=== PATIENT | male | born 1945 | race Caucasian/White ===

== ENCOUNTER 2018-09-08 19:40 | Emergency (ER) | payer MEDICARE ==
[2018-09-08] MEDS ORDERED: Morphine 4 MG/ML Syringe IVPUSH ONE ×2 (20:20→20:38)
[2018-09-08] MEDS ORDERED: Ondansetron 4 MG/2 ML SDV IVPUSH ONE (20:21)
[2018-09-08] MEDS ORDERED: Ondansetron 4 MG/2 ML SDV ONE (20:22)
--- NOTE | 2018-09-08 20:23 | EDM.PDOC ---
ED HPI GENERAL MEDICAL PROBLEM - General Chief Complaint: Abdominal Pain Stated Complaint: ABDOMINAL PAIN/VOMITING Time Seen by Provider: 09/08/18 20:10 Source of Information: Reports: Patient History Limitations: Reports: No Limitations - History of Present Illness INITIAL COMMENTS - FREE TEXT/NARRATIVE: 73-year-old male developed mid upper abdominal pain at 11 AM this morning. It is a constant aching pain that radiates to the back. He has been having nausea and has vomited several times on route to the emergency room. He does have prior history of a hiatal hernia that was repaired 2 years ago. No aggravating or alleviating factors. Abdominal Pain Score (Numeric/FACES): 10 - Related Data Allergies Allergy/AdvReac Type Severity Reaction Status Date / Time simvastatin AdvReac Muscle Verified 09/08/18 19:53 Aches Home Meds: Home Meds Aspirin [Kayla Chewable] 81 mg PO DAILY 09/28/13 [History] Nitroglycerin [Nitrostat] 0.4 mg PO ASDIRECTED PRN 09/28/13 [History] atorvaSTATin Calcium [Atorvastatin Calcium] 40 mg PO DAILY 09/28/13 [History] Cholecalciferol (Vitamin D3) [Vitamin D3] 5,000 unit PO DAILY 05/12/16 [History] Cyanocobalamin (Vitamin B12) [Vitamin B12] 250 mcg PO DAILY 05/12/16 [History] Lisinopril 5 mg PO DAILY 05/12/16 [History] Magnesium Oxide 250 mg PO DAILY 05/12/16 [History] Red Yeast Rice 600 mg PO DAILY 05/12/16 [History] Ubidecarenone [Co Q-10] 30 mg PO DAILY 05/12/16 [History] Past Medical History HEENT History: Reports: Cataract, Hard of Hearing, Impaired Vision Cardiovascular History: Reports: CAD, High Cholesterol, Hypertension, Stents Gastrointestinal History: Reports: GERD, Hiatal Hernia Musculoskeletal History: Reports: Fracture, Osteoarthritis Dermatologic History: Reports: None - Infectious Disease History Infectious Disease History: Reports: Chicken Pox, Measles - Past Surgical History HEENT Surgical History: Reports: Cataract Surgery Cardiovascular Surgical History: Reports: Coronary Artery Stent, Percutaneous Transluminal Angioplasty GI Surgical History: Reports: Colonoscopy, EGD, Other (See Below) Musculoskeletal Surgical History: Reports: Other (See Below) Dermatological Surgical History: Reports: Skin Biopsy Social & Family History - Caffeine Use Caffeine Use: Reports: Soda ED ROS GENERAL - Review of Systems Review Of Systems: See Below Constitutional: Denies: Fever, Weakness HEENT: Reports: No Symptoms Respiratory: Denies: Shortness of Breath, Pleuritic Chest Pain, Cough Cardiovascular: Denies: Chest Pain, Palpitations GI/Abdominal: Reports: Abdominal Pain, Nausea, Vomiting. Denies: Black Stool, Bloody Stool, Constipation, Diarrhea, Melena : Denies: Dysuria, Flank Pain ED EXAM, GI/ABD - Physical Exam Exam: See Below Exam Limited By: No Limitations General Appearance: Alert, Anxious, Severe Distress, Thin Eyes: Bilateral: Normal Appearance, EOMI Respiratory/Chest: No Respiratory Distress, Lungs Clear, Normal Breath Sounds Cardiovascular: Normal Peripheral Pulses, Regular Rate, Rhythm, No Edema GI/Abdominal Exam: Normal Bowel Sounds, Tender, Other (Tenderness over upper abdomen.). No: Rebound, Hepatomegaly, Splenomegaly (Male) Exam: No Hernia Course - Vital Signs Last Recorded V/S: Last Vital Signs Temp 36.3 C 09/08/18 21:05 Pulse 74 09/08/18 23:07 Resp 17 09/08/18 23:07 BP 118/77 09/08/18 23:07 Pulse Ox 98 09/08/18 23:07 - Orders/Labs/Meds Orders: Active Orders 24 hr Category Date Time Status Peripheral IV Care [RC] . DIRECTED Care 09/08/18 20:20 Active CULTURE BLOOD [BC] Urgent Lab 09/08/18 21:25 Received CULTURE BLOOD [BC] Urgent Lab 09/08/18 21:30 Received Blood Culture x2 Reflex Set [OM.PC] Urgent Oth 09/08/18 21:15 Ordered Peripheral IV Insertion Adult [OM.PC] Urgent Oth 09/08/18 20:17 Ordered Labs: Laboratory Tests 09/08/18 09/08/18 09/08/18 Range/Units 20:31 20:31 20:31 WBC 9.9 (4.5-11.0) K/uL RBC 4.94 (4.30-5.90) M/uL Hgb 16.1 H D (12.0-15.0) g/dL Hct 46.7 (40.0-54.0) % MCV 95 (80-98) fL MCH 33 H (27-31) pg MCHC 35 (32-36) % Plt Count 262 (150-400) K/uL Neut % (Auto) 87 H (36-66) % Lymph % (Auto) 8 L (24-44) % [place] % (Auto) 4 (2-6) % Eos % (Auto) 0 L (2-4) % Baso % (Auto) 0 (0-1) % Sodium 138 L (140-148) mmol/L Potassium 3.5 L (3.6-5.2) mmol/L Chloride 101 (100-108) mmol/L Carbon Dioxide 27 (21-32) mmol/L Anion Gap 13.5 (5.0-14.0) mmol/L BUN 32 H D (7-18) mg/dL Creatinine 1.2 (0.8-1.3) mg/dL Est Cr Clr Drug Dosing TNP Estimated GFR (MDRD) 59 L (>60) Glucose 156 H (74-106) mg/dL Lactic Acid 2.7 H (0.4-2.0) mmol/L Calcium 9.6 D (8.5-10.1) mg/dL Lipase 73 (73-393) U/L Meds: Medications Discontinued Medications Generic Name Dose Route Start Last Admin Trade Name Freq PRN Reason Stop Dose Admin Sodium Chloride 1,000 mls @ 125 mls/hr 09/08/18 20:30 09/08/18 20:28 Normal Saline IV 125 mls/hr ASDIRECTED MILLI Administration Sodium Chloride 80 mls @ 3 mls/sec 09/08/18 21:30 09/08/18 21:45 Normal Saline IV 3 mls/sec ASDIRECTED MILLI Administration Iopamidol 100 ml 09/08/18 21:30 09/08/18 21:46 Isovue-300 (61%) IV 100 ml . DIRECTED MILLI Administration Morphine Sulfate 4 mg 09/08/18 20:20 09/08/18 20:27 Morphine IVPUSH 09/08/18 20:21 4 mg ONETIME ONE Administration Morphine Sulfate 4 mg 09/08/18 20:38 09/08/18 20:40 Morphine IVPUSH 09/08/18 20:39 4 mg ONETIME ONE Administration Morphine Sulfate 2 mg 09/08/18 23:32 09/08/18 23:54 Morphine IVPUSH 09/08/18 23:33 2 mg ONETIME ONE Administration Ondansetron HCl 4 mg 09/08/18 20:21 09/08/18 20:26 Zofran IVPUSH 09/08/18 20:22 4 mg ONETIME ONE Administration Ondansetron HCl Confirm 09/08/18 20:22 09/08/18 20:30 Zofran Administered 09/08/18 20:23 Not Given Dose 4 mg .ROUTE .STK-MED ONE Sodium Chloride 10 ml 09/08/18 20:17 09/08/18 21:46 Saline Flush FLUSH 10 ml ASDIRECTED PRN Administration Keep Vein Open - Radiology Interpretation Free Text/Narrative:: 2 view x-ray of the abdomen was normal. CT scan of the abdomen does show a mechanical small bowel obstruction. No other obvious problems on CT. - Re-Assessments/Exams Free Text/Narrative Re-Assessment/Exam: 09/08/18 22:56 IV was started and he was given morphine 4 mg 2. He was also given Zofran 4 mg IV which gave him good control of his symptoms. Departure - Departure Time of Disposition: 23:55 Disposition: DC/Tfer to Other 70 Condition: Fair Clinical Impression: SBO (small bowel obstruction) - Discharge Information *PRESCRIPTION DRUG MONITORING PROGRAM REVIEWED*: No *COPY OF PRESCRIPTION DRUG MONITORING REPORT IN PATIENT HOMERO: No Referrals: Idris Buenrostro Sr, MD [Primary Care Provider] - Forms: ED Department Discharge Care Plan Goals: Transfer to [facility] because we had no open beds available. - Problem List & Annotations (1) Small bowel obstruction SNOMED Code(s): 250492713 Code(s): K56.609 - UNSP INTESTNL OBST, UNSP TO PARTIAL VERSUS COMPLETE OBST Status: Acute - My Orders Last 24 Hours: My Active Orders 09/08/18 20:17 Peripheral IV Insertion Adult [OM.PC] Urgent 09/08/18 20:20 Peripheral IV Care [RC] . DIRECTED 09/08/18 21:15 Blood Culture x2 Reflex Set [OM.PC] Urgent 09/08/18 21:25 CULTURE BLOOD [BC] Urgent 09/08/18 21:30 CULTURE BLOOD [BC] Urgent - Assessment/Plan Last 24 Hours: My Active Orders 09/08/18 20:17 Peripheral IV Insertion Adult [OM.PC] Urgent 09/08/18 20:20 Peripheral IV Care [RC] . DIRECTED 09/08/18 21:15 Blood Culture x2 Reflex Set [OM.PC] Urgent 09/08/18 21:25 CULTURE BLOOD [BC] Urgent 09/08/18 21:30 CULTURE BLOOD [BC] Urgent
[2018-09-08] MEDS: Sodium Chloride 0.9% 10 ML Syringe FLUSH PRN ×2 (20:26→21:46)
[2018-09-08] MEDS ORDERED: Sodium Chloride 0.9% 1,000 ML IV SCH (20:30)
--- NOTE | 2018-09-08 21:17 | CRLCR ---
Indication: Abdominal pain Technique: KUB 2 view Comparison: None Findings/Impression: : Soft tissues: No suspicious calcifications to suggest kidney or ureteral stones. No sign of free air. No sign of soft tissue mass. Surgical sutures near the left hemidiaphragm. Bowel: Bowel pattern is within normal limits. Moderate amount of feces in the ascending and transverse portions of the colon. Bones: Unremarkable for age. Dictated by Salima Garay MD @ Sep 08 2018 9:11PM Signed by Dr. Salima Garay @ Sep 08 2018 9:15PM
[2018-09-08] MEDS ORDERED: Sodium Chloride 0.9% 80 ML IV SCH (21:30)
[2018-09-08] MEDS ORDERED: Iopamidol 612 MG/ML 100 ML Bottle IV SCH (21:30)
--- NOTE | 2018-09-08 22:13 | CRLCT ---
INDICATION: Abdominal pain TECHNIQUE: CT Abdomen and pelvis with i.v. contrast. Coronal and sagittal reformats were obtained. CONTRAST: 100 mL Isovue 300 COMPARISON: None FINDINGS: Lower chest: A 5 mm calcified granuloma is present in the left medial lung base. Liver: Unremarkable. Spleen: Unremarkable. Pancreas: Unremarkable. Gallbladder: Layering densities are seen in the gallbladder which may be due to numerous tiny gallstones or sludge. Kidney: Simple cyst present in the kidneys bilaterally measuring up to 2.5 cm. Adrenal: Unremarkable. Bowel: Small sliding type gastric hiatal hernia (type IV) is present. Distention of the small bowel loops are present measuring up to 3.4 cm with transition point in the anterior mid abdomen. There is a nonobstructing left inguinal hernia present containing a segment of colon and a nonobstructing right inguinal hernia present containing a short segment of small bowel. The appendix is not identified. Vascular: Unremarkable. Lymph: Unremarkable. Peritoneum: Unremarkable. No pneumoperitoneum is seen. No significant ascites is noted. Pelvis: See above. Soft tissue: Unremarkable. Bone: Grade 1 anterolisthesis at L4-5 and L5-S1 is noted. Severe degenerative disc disease with discogenic sclerosis is seen at L2-3. IMPRESSIONS: 1. Distention of the small bowel loops are present measuring up to 3.4 cm with transition point in the anterior mid abdomen. Findings are consistent with mechanical small bowel obstruction. 2. There is a nonobstructing left inguinal hernia present containing a segment of colon and a nonobstructing right inguinal hernia present containing a short segment of small bowel. Dictated by Delmar Abraham MD @ 09/08/2018 10:11:18 PM Please note that all CT scans at this facility use dose modulation, iterative reconstruction, and/or weight-based dosing when appropriate to reduce radiation dose to as low as reasonably achievable. Dictated by: Delmar Abraham MD @ 09/08/2018 22:11:36 (Electronically Signed)
[2018-09-08 23:08] VITALS: BP 118/77
[2018-09-08] MEDS ORDERED: Morphine 2 MG/ML Syringe IVPUSH ONE (23:32)
== END 2018-09-09 00:52 | disposition other institution (70) ==
LOC: JP.ED 19:40
DX: K56.609 Unspecified intestinal obstruction, unspecified as to partial versus complete obstruction (principal); I10 Essential (primary) hypertension; E78.00 Pure hypercholesterolemia, unspecified; K21.9 Gastro-esophageal reflux disease without esophagitis; I25.10 Atherosclerotic heart disease of native coronary artery without angina pectoris; Z79.899 Other long term (current) drug therapy; Z79.82 Long term (current) use of aspirin; Z88.8 Allergy status to other drugs, medicaments and biological substances
CPT/HCPCS: 36415; 74019; 74177; 80048; 83605; 83690; 85025; 87040; 96374; 96375; 96376; 99285; J2270; J2405; J7030; Q9967